=== PATIENT | male | born 1940 | race Caucasian/White ===

== ENCOUNTER 2018-05-02 09:41 | Inpatient (IN) ==
--- NOTE | 2018-05-02 09:51 | Emergency Department Note ---
Disposition Clinical Impression: Hyponatremia, Alcoholism Disposition: Admitted As Inpatient Condition: Good Referrals: Hussain Bryan DO [Primary Care Provider] - Fever HPI - General Chief Complaint: ED General Medical Stated Complaint: low NA, weakness Time Seen by Provider: 05/02/18 09:48 Source: patient Mode of arrival: ambulatory Limitations: no limitations Nursing Notes Reviewed: Yes Vital Signs Reviewed: Yes - History of Present Illness HPI Narrative: Patient was sent to the emergency department with Dr. Green's office with a sodium of 116. The patient has a history of low sodium as he increases his alcohol intake. He recently started increasing his alcohol intake to 5-10 beers per day. He has felt weak and a little unsteady on his feet for the past several days. Pt Subjective Complaint: weakness Onset (ago): day(s) (several) Associated symptoms: Reports: denies other symptoms Improves with: nothing Worsens with: nothing - Related Data Home Medications Medication Instructions Recorded Confirmed Losartan/Hydrochlorothiazide 1 each PO DAILY 05/02/18 05/02/18 [Losartan-Hctz 100-25 mg Tab] Lovastatin [Lovastatin] 40 mg PO DAILY 05/02/18 05/02/18 Nadolol [Corgard] 40 mg PO DAILY 05/02/18 05/02/18 Omeprazole [PriLOSEC] 40 mg PO DAILY 05/02/18 05/02/18 Tamsulosin [Flomax] 0.4 mg PO DAILY 05/02/18 05/02/18 Verapamil HCl [Verapamil HCl] 360 mg PO DAILY 05/02/18 05/02/18 Allergies Allergy/AdvReac Type Severity Reaction Status Date / Time lisinopril Allergy Hives Verified 05/02/18 09:44 Penicillins [PCN] Allergy Hives Verified 05/02/18 09:44 All systems ED: reviewed and negative except as stated. Review of Systems: As Per HPI Constitutional: Reports: as per HPI, weakness. Denies: fever, chills, weight change Eyes: Denies: eye pain, eye discharge, vision change ENT ED: Denies: ear pain, throat pain, dental pain, hearing loss, epistaxis, congestion, dysphagia Cardiovascular: Denies: chest pain, palpitations, dyspnea on exertion, edema, syncope Respiratory: Denies: cough, dyspnea, wheezes, hemoptysis, stridor Gastrointestinal: Denies: abdominal pain, nausea, vomiting, diarrhea, constipation, hematemesis, melena, hematochezia Genitourinary: Denies: urgency, dysuria, frequency, hematuria Musculoskeletal: Denies: back pain, neck pain, arthralgia, myalgia Integumentary: Denies: rash, abrasion, lesions Neurological: Denies: headache, weakness, numbness, paresthesias, confusion, abnormal gait, vertigo Psychiatric: Denies: anxiety, depression, suicidal thoughts, homicidal thoughts , auditory hallucinations, visual hallucinations Endocrine: Denies: fatigue Hematological/Lymphatic: Denies: easy bleeding, easy bruising Allergic/Immunologic: Denies: facial swelling, urticaria Physical Exam - General Limitations: no limitations General appearance: alert, in no apparent distress - Head Head exam: atraumatic, normocephalic, normal inspection - Eye Eye exam: Present: normal appearance, PERRL, EOMI - ENT ENT exam: normal exam, normal oropharynx, mucous membranes moist - Neck Neck exam: Present: normal inspection, full ROM, trachea midline - Chest Chest inspection: Present: normal inspection, symmetric chest wall rise - Respiratory Respiratory exam: Present: normal lung sounds bilaterally - Cardiovascular Cardiovascular exam: Present: regular rate, normal rhythm, normal heart sounds - Abdominal Exam Abdominal exam: Present: soft, Non-Tender. Absent: tenderness, distention, guarding, rebound, rigidity - Extremities Exam Extremities exam: Present: normal inspection, full ROM. Absent: tenderness, pedal edema - Back Exam Back exam: Present: normal inspection, full ROM. Absent: tenderness - Neurological Exam Neurological exam: Present: alert, oriented X3, CN II-XII intact - Psychiatric Psychiatric exam: Present: normal affect, normal mood - Skin Skin exam: Present: warm, dry, intact Course Course Narrative: Case was discussed with Dr. Hankins the patient will be admitted under his care Fever - Lab Data Lab results reviewed: Yes I reviewed the patient's lab results. - Radiology Data Radiology results reviewed: Yes I reviewed the patient's radiology results. - EKG Data EKG attestation: Yes I reviewed and interpreted this EKG. EKG results narrative: EKG shows sinus rhythm with a rate of 63 bpm this first-degree AV block with NM interval of 216 ms. QRS duration 114 ms QT QTC intervals are normal R axis of - 53 degrees
[2018-05-02] MEDS ORDERED: 0.9 % Sodium Chloride 1,000 ML IVC SCH ×2 (10:15→11:17)
[2018-05-02 10:22] LABS: Basophils % 0.6 %; Eosinophils # 0.5 K/mcL (0.0-0.6); Eosinophils % 8.1 %; Hematocrit 37.8 % (37.5-50.1); Hemoglobin 13.5 g/dL (12.9-16.9); Lymphocytes # 1.3 K/mcL (0.6-4.6); Lymphocytes % 20.3 %; Mean Corpuscular HGB Conc 35.7 g/dL (31.6-35.5); Mean Corpuscular Hemoglobin 30.9 pg (28.0-33.3); Mean Corpuscular Volume 86.5 fL (83.0-100.0); Mean Platelet Volume 8.3 fL (9.4-12.4); Monocytes # 0.6 K/mcL (0.0-1.3); Monocytes % 10.2 %; Neutrophils # 3.8 K/mcL (1.6-8.9); Platelet Count 282 K/mcL (140-400); Red Blood Count 4.37 M/mcL (4.19-5.50); Red Cell Distribution Width 14.2 % (11.5-14.5); Segmented Neutrophils % 59.8 %
[2018-05-02 10:41] LABS: BUN/Creatinine Ratio 11 (6-26); Blood Urea Nitrogen 10 mg/dL (8-23); Calcium 9.2 mg/dL (8.6-10.3); Carbon Dioxide 26 mEq/L (23-29); Chloride 84 mEq/L (98-107); Glucose 95 mg/dL (70-105); Osmolality,Calculated 243 (280-300); Potassium 4.2 mEq/L (3.5-5.1); Sodium 117 mEq/L (136-145); eGFR For Non-African Americans > 60 (> 60)
[2018-05-02] MEDS ORDERED: Naloxone 0.4 MG/ML INJ IVP PRN (11:17)
[2018-05-02] MEDS ORDERED: Losartan/HCTZ 50-12.5 TABLET PO SCH (12:36)
[2018-05-02] MEDS ORDERED: ALPRAZolam 0.5 MG TABLET PO ONE (15:01)
--- NOTE | 2018-05-02 15:08 | Internal Med History&Physical ---
Date of Encounter: 05/02/18 Time of Encounter: 14:35 Assessment and Plan (1) Hyponatremia Current visit: Yes Status: Acute Suspect primarily due to losartan/HCTZ use. Will discontinue medication and give normal saline IV. Additional workup for SIADH and ascites will also be done. (2) Hypertension Current visit: Yes Status: Chronic Hold losartan/HCTZ. Continue Corgard and verapamil for now. Qualifiers: Hypertension type: essential hypertension Qualified Code(s): I10 - Essential (primary) hypertension (3) Hyperlipidemia Current visit: Yes Status: Chronic Continue lovastatin Qualifiers: Hyperlipidemia type: unspecified Qualified Code(s): E78.5 - Hyperlipidemia , unspecified (4) Hypothyroidism Current visit: Yes Status: Chronic Check TSH in a.m. Qualifiers: Hypothyroidism type: unspecified Qualified Code(s): E03.9 - Hypothyroidism , unspecified Internal Medicine - H&P: HPI Chief complaint: Hyponatremia Admitted From: Emergency Dept Plans for Post Hospital Care: Home History of present illness: Mr. Carter is a 77 year old male who came to emergency room by direction of his PCP office after labs drawn yesterday showed sodium of 116. Repeat labs in emergency room confirmed hyponatremia with sodium 117. He was admitted to [facility] floor for ongoing care needs. He reports starting losartan/HCTZ within the last 4 weeks for hypertension. He has not had vomiting or diarrhea. He has not drunk alcohol for approximately 3 weeks. He denies heavy alcohol consumption prior to that stating he got up to 5 beers per day. He denies disorders of his liver gallbladder or exocrine pancreas. He has GERD. Past Med Surg Social Fam HX - Past Medical History Medical history: hypertension Psychiatric history: anxiety - Past Surgical History Surgical History: appendectomy, herniorrhaphy Additional surgical history: "Brain shunt" placement - Social History Smoking Status: Never smoker Smokeless Tobacco Status: No Alcohol use: none Drug use: none Internal Medicine - H&P: Meds Losartan/Hydrochlorothiazide [Losartan-Hctz 100-25 mg Tab] 1 each PO DAILY 05/02 [History] Lovastatin [Lovastatin] 40 mg PO DAILY 05/02/18 [History] Nadolol [Corgard] 40 mg PO DAILY 05/02/18 [History] Omeprazole [PriLOSEC] 40 mg PO DAILY 05/02/18 [History] Tamsulosin [Flomax] 0.4 mg PO DAILY 05/02/18 [History] Verapamil HCl [Verapamil HCl] 360 mg PO DAILY 05/02/18 [History] 3 Allergy/AdvReac Type Severity Reaction Status Date / Time lisinopril Allergy Hives Verified 05/02/18 09:44 Penicillins [PCN] Allergy Hives Verified 05/02/18 09:44 All Systems PM: A 10-system review of systems was performed and is negative for pertinent findings except as documented above in the HPI. Review of systems: Gen.: He states his weight has increased approximately 14 pounds in the past year. He attributes this to eating more. Cardiovascular: He has history of hypertension but denies UT heart failure angina DVT or pulmonary embolus. Respiratory: He smoked from age [age] a total of 30-35 years never exceeding 1 pack per day. He does not have documented chronic lung disease. GI: As per history of present illness : He has BPH. He denies other kidney or bladder disorders. 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 He reports his balance and gait improved postoperatively. He denies large distribution strokes or seizures. Endocrine: He has hypothyroidism and hyperlipidemia. He denies diabetes. Hematology/oncology: He has history of anemia. He denies internal malignancies or other blood disorders Psychiatric: He has anxiety but denies depression or other mental health issues [place] skeletal: He denies arthritis gout or other bone joint or muscle disorders. He states he has felt "weak" in the past few days. - Constitutional Vitals: Temp Pulse Resp BP Pulse Ox 98.2 F 66 20 183/86 95 05/02/18 11:22 05/02/18 12:59 05/02/18 11:22 05/02/18 12:59 05/02/18 11:22 Exam: Gen.: He is a well-developed well-nourished male resting comfortably in bed who appears in no acute distress HEENT: Head is atraumatic and normocephalic. Eyes: EOMI. There is no scleral icterus. Mouth: Mucosa is moist. Neck: Supple and nontender. There is no thyromegaly or adenopathy noted. Heart: Regular without murmurs gallops or ectopics Lungs: No wheezes or crackles are heard. Abdomen: Soft and nontender. There is questionable ascites to percussion of the abdomen. No masses or guarding are noted. Extremities: There is no cyanosis or clubbing noted. Dorsalis pedis and posterior tibial pulses are trace palpable bilaterally. Neurologic: Mental status: He is talkative and a fairly good historian. He has difficulty remembering some details of his history. Cranial nerves: Smile is symmetric. Forehead wrinkles bilaterally. Tongue protrudes midline. EOMI. Motor: There is no pronator drift. Cerebellar: Finger to nose is intact bilaterally. Skin: Warm and dry Internal Med - H&P Results - Labs CBC & Chem 7: 05/02/18 10:01 05/02/18 10:01
[2018-05-02] MEDS ORDERED: amLODIPine 5 MG TABLET PO ONE (15:34)
[2018-05-02] MEDS: 0.9 % Sodium Chloride 1,000 ML IVC SCH (17:58)
[2018-05-03] MEDS: 0.9 % Sodium Chloride 1,000 ML IVC SCH ×4 (02:27→20:27)
[2018-05-03 05:41] LABS: Basophils % 0.7 %; Eosinophils # 0.4 K/mcL (0.0-0.6); Eosinophils % 7.1 %; Hematocrit 34.5 % (37.5-50.1); Hemoglobin 12.3 g/dL (12.9-16.9); Immature Granulocytes % 0.7 % (0-4); Lymphocytes # 1.3 K/mcL (0.6-4.6); Lymphocytes % 22.5 %; Mean Corpuscular HGB Conc 35.7 g/dL (31.6-35.5); Mean Corpuscular Hemoglobin 31.1 pg (28.0-33.3); Mean Corpuscular Volume 87.3 fL (83.0-100.0); Mean Platelet Volume 8.3 fL (9.4-12.4); Monocytes # 0.7 K/mcL (0.0-1.3); Monocytes % 11.2 %; Neutrophils # 3.4 K/mcL (1.6-8.9); Platelet Count 281 K/mcL (140-400); Red Blood Count 3.95 M/mcL (4.19-5.50); Red Cell Distribution Width 14.3 % (11.5-14.5); Segmented Neutrophils % 57.8 %
[2018-05-03 05:51] LABS: INR 1.1; Prothrombin Time 11.9 Seconds (9.4-12.1)
[2018-05-03 06:15] LABS: Alanine Aminotransferase 14 Units/L (7-52); Albumin 3.9 g/dL (3.5-5.7); Albumin/Globulin Ratio 1.2 (1.1-2.2); Alkaline Phosphatase 52 Units/L (34-104); Aspartate Amino Transferase 14 Units/L (13-39); BUN/Creatinine Ratio 8 (6-26); Bilirubin,Total 0.4 mg/dL (0.3-1.0); Blood Urea Nitrogen 7 mg/dL (8-23); Calcium 8.6 mg/dL (8.6-10.3); Carbon Dioxide 26 mEq/L (23-29); Chloride 93 mEq/L (98-107); Globulin 3.3 g/dL (2.4-3.5); Glucose 89 mg/dL (70-105); Magnesium 1.8 mg/dL (1.6-2.6); Osmolality,Calculated 257 (280-300); Potassium 4.2 mEq/L (3.5-5.1); Sodium 125 mEq/L (136-145); Total Protein 7.2 g/dL (6.4-8.9); eGFR For Non-African Americans > 60 (> 60)
[2018-05-03 06:40] LABS: Thyroid Stimulating Hormone 7.113 mcIU/mL (0.340-5.600)
[2018-05-03] MEDS: Verapamil ER (24 HR) 180 MG TABLET.ER PO SCH (08:23)
[2018-05-03] MEDS ORDERED: Losartan/HCTZ 50-12.5 TABLET PO SCH ×2 (09:00→12:33)
--- NOTE | 2018-05-03 10:02 | Internal Med Progress Note ---
Date of Encounter: 05/03/18 Time of Encounter: 09:55 - Assessment and plan (1) Hyponatremia Current Visit: Yes Status: Acute Assessment and plan: May 03. Improved with sodium 125. Remain off losartan/HCTZ. Recheck labs in a.m. (2) Hypertension Current Visit: Yes Status: Chronic Assessment and plan: May 03. Will give losartan and continue verapamil and nadolol. Qualifiers: Hypertension type: essential hypertension Qualified Code(s): I10 - Essential (primary) hypertension (3) Hyperlipidemia Current Visit: Yes Status: Chronic Assessment and plan: May 03. Continue lovastatin Qualifiers: Hyperlipidemia type: unspecified Qualified Code(s): E78.5 - Hyperlipidemia , unspecified (4) Hypothyroidism Current Visit: Yes Status: Chronic Assessment and plan: May 03. TSH returned slightly elevated at 7.113. Increase Synthroid from 137 g daily to 150 g daily. Qualifiers: Hypothyroidism type: unspecified Qualified Code(s): E03.9 - Hypothyroidism , unspecified - Subjective Interval history: May 03. He has no new complaints and feels better - Constitutional Vitals: Temp Pulse Resp BP Pulse Ox 98.6 F 62 16 165/86 97 05/03/18 07:10 05/03/18 07:10 05/03/18 07:10 05/03/18 07:10 05/03/18 07:10 Exam: He is resting comfortably in bed and appears in no acute distress. His affect is bright and cheerful. I reviewed his medications. I discussed pertinent labs with him. Internal Medicine: Result - Labs CBC & Chem 7: 05/03/18 04:49 05/03/18 04:49 Labs: Short CBC 05/03/18 Range/Units 04:49 WBC 5.9 (4.3-11.1) K/mcL Hgb 12.3 L (12.9-16.9) g/dL Hct 34.5 L (37.5-50.1) % Plt Count 281 (140-400) K/mcL Neutrophils # 3.4 (1.6-8.9) K/mcL BMP 05/03/18 04:49 Sodium 125 L Potassium 4.2 Chloride 93 L Carbon Dioxide 26 BUN 7 L Creatinine 0.89 Glucose 89 Calcium 8.6 Liver Function 05/03/18 Range/Units 04:49 Total Bilirubin 0.4 (0.3-1.0) mg/dL AST 14 (13-39) Units/L ALT 14 (7-52) Units/L Alkaline Phosphatase 52 (34-104) Units/L Albumin 3.9 (3.5-5.7) g/dL - ABG Interpretation ABG results: PT/INR, D-dimer PT 11.9 Seconds (9.4-12.1) 05/03/18 04:49 Consult Discharge Plan - Plan Referrals: Hussain Bryan DO [Primary Care Provider] - 1 week
[2018-05-03] MEDS ORDERED: Aspirin 325 MG TABLET PO ONE (17:35)
[2018-05-03] MEDS ORDERED: *HR* LORazepam 2 MG/ML VIAL IVP ONE (21:02)
[2018-05-03] MEDS: ALPRAZolam 0.25 MG TABLET PO PRN (23:18)
[2018-05-04 06:37] LABS: Basophils % 0.4 %; Eosinophils # 0.4 K/mcL (0.0-0.6); Hematocrit 34.4 % (37.5-50.1); Hemoglobin 12.4 g/dL (12.9-16.9); Immature Granulocytes % 0.6 % (0-4); Lymphocytes # 1.3 K/mcL (0.6-4.6); Lymphocytes % 17.8 %; Mean Corpuscular Hemoglobin 31.2 pg (28.0-33.3); Mean Corpuscular Volume 86.4 fL (83.0-100.0); Mean Platelet Volume 8.5 fL (9.4-12.4); Monocytes # 0.7 K/mcL (0.0-1.3); Monocytes % 9.2 %; Neutrophils # 4.8 K/mcL (1.6-8.9); Platelet Count 272 K/mcL (140-400); Red Blood Count 3.98 M/mcL (4.19-5.50)
[2018-05-04 06:57] LABS: BUN/Creatinine Ratio 7 (6-26); Blood Urea Nitrogen 6 mg/dL (8-23); Calcium 8.3 mg/dL (8.6-10.3); Carbon Dioxide 22 mEq/L (23-29); Chloride 93 mEq/L (98-107); Glucose 106 mg/dL (70-105); Osmolality,Calculated 254 (280-300); Potassium 3.8 mEq/L (3.5-5.1); Sodium 123 mEq/L (136-145); eGFR For Non-African Americans > 60 (> 60)
[2018-05-04] MEDS: Verapamil ER (24 HR) 180 MG TABLET.ER PO SCH (07:52)
[2018-05-04] MEDS: 0.9 % Sodium Chloride 1,000 ML IVC SCH (08:51)
[2018-05-04 10:06] LABS: % Iron Saturation 20 % (20-55); Iron 78 mcg/dL (65-175); Transferrin 272 mg/dL (203-362)
--- NOTE | 2018-05-04 10:20 | Discharge Summary ---
Orders not resulted at time of discharge: Pending orders 05/04/18 05:40 Basic Metabolic Panel AM 0400 Ferritin AM 0400 Folate AM 0400 Iron Profile AM 0400 Vitamin B12 AM 0400 Date of Encounter: 05/04/18 Time of Encounter: 09:55 - Discharge Diagnosis (1) Hyponatremia Priority: Primary Status: Acute (2) Confusion Priority: Secondary Status: Acute (3) Hypertension Priority: Secondary Status: Chronic Qualifiers: Hypertension type: essential hypertension Qualified Code(s): I10 - Essential (primary) hypertension (4) Hyperlipidemia Priority: Secondary Status: Chronic Qualifiers: Hyperlipidemia type: unspecified Qualified Code(s): E78.5 - Hyperlipidemia , unspecified (5) Hypothyroidism Priority: Secondary Status: Chronic Qualifiers: Hypothyroidism type: unspecified Qualified Code(s): E03.9 - Hypothyroidism , unspecified Hospital course: Mr. Carter is a 77 year old male who came to emergency room by direction of his PCP office after labs drawn yesterday showed sodium of 116. Repeat labs in emergency room confirmed hyponatremia with sodium 117. He was admitted to [facility] for ongoing care needs. Initial orders were written by the emergency room physician. I saw him on May 02 and performed a history and physical. Review of available records showed hyponatremia had been present on all [facility] labs since March 2015. He was started on IV normal saline. Losartan/HCTZ was discontinued. His sodium improved to 125 by the following day. His mental status was improved when I saw him the morning of May 03. In the late afternoon of May 03 he was noted to have increased confusion with decreased responsiveness to questions despite being fully awake. There appeared to be impaired comprehension to questions and commands. Repeat head CT was done which showed no acute pathology. Ammonia level and blood sugar level were normal. He was given an aspirin 325 mg for possible TIA. By the following morning he had improved in his responsiveness to questions but still had some confusion present as well as some amnesia of events of the previous evening. No focal motor deficits were present. He stated he wished to be discharged home. I explained to family that I felt he should follow with his neurologist at [facility] and might possibly benefit from a psychiatric evaluation. He will continue aspirin 81 mg daily at home. TSH returned slightly elevated at 7.113 so Synthroid dose will be increased to 150 g daily. Cardura 1 mg at bedtime will be given since losartan/HCT will he discontinued. He will follow with his PCP and neurologist within 1 week. - Time Spent with Patient Total time spent providing and/or coordinating discharge services: - Discharge Medications Prescriptions: ALPRAZolam [Xanax 0.25 MG Tablet] 0.25 mg PO Q6HR PRN 3 Days #12 tablet PRN Reason: Anxiety Aspirin 81 mg PO DAILY 365 Days tab.chew Doxazosin [Cardura] 1 mg PO HS #30 tablet Levothyroxine [Synthroid] 150 mcg PO DAILY #30 tablet Home Medications: Lovastatin 40 mg PO DAILY 05/02/18 [History] Nadolol [Corgard] 40 mg PO DAILY 05/02/18 [History] Omeprazole [PriLOSEC] 40 mg PO DAILY 05/02/18 [History] Tamsulosin [Flomax] 0.4 mg PO DAILY 05/02/18 [History] Verapamil HCl 360 mg PO DAILY 05/02/18 [History] ALPRAZolam [Xanax 0.25 MG Tablet] 0.25 mg PO Q6HR PRN 3 Days #12 tablet [Rx] Aspirin 81 mg PO DAILY 365 Days tab.chew 05/04/18 [Rx] Doxazosin [Cardura] 1 mg PO HS #30 tablet 05/04/18 [Rx] Levothyroxine [Synthroid] 150 mcg PO DAILY #30 tablet 05/04/18 [Rx] Allergies/Adverse Reactions: 3 Allergy/AdvReac Type Severity Reaction Status Date / Time lisinopril Allergy Hives Verified 05/02/18 09:44 Penicillins [PCN] Allergy Hives Verified 05/02/18 09:44 Date of admission: 05/02/18 15:03 Primary care physician: Hussain Bryan DO - Constitutional Vitals: Temp Pulse Resp BP Pulse Ox 99.2 F 63 14 149/81 97 05/04/18 07:32 05/04/18 07:32 05/04/18 07:32 05/04/18 07:32 05/04/18 07:32 - Patient Status Disposition: Home, Self-Care Condition: Good - Discharge Instructions Follow Up With: Hussain Bryan DO [Primary Care Provider] - 1 week - Diet and Activity Activity: resume usual activities as tolerated Diet: advance to your usual diet
[2018-05-04 10:25] LABS: Ferritin 72 ng/mL (20-250)
[2018-05-04 10:32] LABS: Folate 8.5 ng/mL (3.0-16.0)
[2018-05-04] MEDS: ALPRAZolam 0.25 MG TABLET PO PRN (21:02)
[2018-05-05] MEDS: 0.9 % Sodium Chloride 1,000 ML IVC SCH ×3 (00:22→13:58)
[2018-05-05] MEDS: Verapamil ER (24 HR) 180 MG TABLET.ER PO SCH (08:35)
[2018-05-05] MEDS: ALPRAZolam 0.25 MG TABLET PO PRN ×2 (10:16→19:04)
--- NOTE | 2018-05-05 10:30 | Electrocardiograph Report ---
[address] [address] Test Date: 2018-05-02 Pat Name: Juan Carter Department: [id number] Room: [facility] Gender: M Lead Caregiver: [id number] : 1940 Requested By: Ignacio Call Order Number: [id number] Reading MD: Sujit Fulton Measurements Intervals [place] Rate: 63 P: 54 [place]: 216 QRS: -53 QRSD: 114 T: 48 QT: 420 QTc: 428 Interpretive Statements SINUS RHYTHM WITH FIRST DEGREE AV BLOCK Poor R wave progression LEFT ANTERIOR FASCICULAR BLOCK MINIMAL VOLTAGE CRITERIA FOR LVH, CONSIDER NORMAL VARIANT BASELINE ARTIFACT Electronically Signed On 05-05-2018 10:28:41 EDT by Sujit Fulton
[2018-05-05 13:10] LABS: Bilirubin,Urine Negative (Negative); Blood,Urine Trace-intact (Negative); Clarity,Urine Clear (Clear); Color,Urine Yellow (Yellow); Glucose,Urine (UA) 100 mg/dL (Normal); Ketones,Urine Trace mg/dL (Negative); Leukocyte Esterase,Urine Negative (Negative); Nitrite,Urine Negative (Negative); Protein,Urine Trace mg/dL (Neg-Trace); Specific Gravity,Urine 1.015 (1.010-1.025); Urobilinogen,Urine Normal (Normal)
[2018-05-05] MEDS ORDERED: amLODIPine 5 MG TABLET PO SCH ×2 (13:15→13:21)
[2018-05-05 13:20] LABS: RBC,Urine 0-3 per hpf (0-3); Squamous Epithelial Cell,Urine Few per lpf (None-Few); WBC,Urine 0-3 per hpf (0-3)
[2018-05-05] MEDS ORDERED: *HR* HYDROcodone/Acet 5/325 mg TABLET PO PRN (15:58)
[2018-05-05] MEDS ORDERED: *HR* LORazepam 2 MG/ML VIAL IVP ONE (19:14)
[2018-05-05 20:05] VITALS: BP 180/93
== END 2018-05-05 20:40 | disposition home or self-care (01) | DRG 641 ==
LOC: INPPIK 09:41 → EMEROOPIK 09:41 → INPPIK 11:16
PROVIDERS: ADMIT Internal Medicine; ATTEND Internal Medicine